=== PATIENT | female | born 1950 | race Caucasian/White ===

== ENCOUNTER 2016-09-06 18:35 | Inpatient (IN) | payer OTHER, MEDICARE ==
[~2016-09-06 18:35] MED LIST: ALLOPURINOL100 MG PO; COLACE100 MG PO; COQ-10100 MG PO; CRESTOR20 MG PO; GLUCOPHAGE1000 MG PO; LASIX40 MG PO; LOPRESSOR25 MG PO; LOPRESSOR50 MG PO; MAG-OXIDE 400M400 MG PO; MAXZIDE 75 MG-1 EACH PO; OXY-IR 5MG5 MG PO; PHENERGAN25 M1 PO; POTASSIUM CHLO10 MEQ PO; VITAMIN D-32000 UNI1 PO
[2016-09-06 18:59] LABS: BILIRUBIN NEGATIVE (NEGATIVE); BLOOD NEGATIVE Ery/uL (NEGATIVE); CLARITY CLEAR (CLEAR); COLOR YELLOW (YELLOW); GLUCOSE (U) NORMAL (NORMAL); KETONE (U) NEGATIVE (NEGATIVE); LEUKOCYTES 1+ Leu/uL (NEGATIVE); NITRITE NEGATIVE (NEGATIVE); PROTEIN NEGATIVE (NEGATIVE); SPECIFIC GRAVITY <=1.005 (1.001-1.030); UROBILINOGEN 0.2 mg/dL (0.2-1.0)
[2016-09-06 19:03] LABS: BACTERIA TRACE; SQUAMOUS EPITHELIAL CELLS RARE; URINARY RBC RARE
[2016-09-06 19:11] LABS: BASOPHIL 0.4 % (0-2); EOSINOPHIL 1.4 % (0-7); HCT 43.3 % (37.0-47.0); HGB 14.6 g/dl (12.5-16.0); LYMPHOCYTE 35.6 % (15-48); MCH 29.9 pg (25.0-31.0); MCHC 33.7 g/dL (32.0-36.0); MCV 88.7 fL (78.0-100.0); MONOCYTE 7.4 % (0-12); MPV 10.1 fL (6.0-9.5); NEUTROPHIL 55.2 % (41-80); PLT 268 K/uL (150-400); RBC 4.88 M/uL (4.20-5.40); RDW 14.1 % (11.5-14.0); WBC 10.9 K/uL (4.0-10.5)
[2016-09-06 19:28] LABS: ALBUMIN 5.2 g/dL (3.4-4.8); BILIRUBIN - TOTAL 0.8 mg/dL (0.1-1.0); CREATININE 0.8 mg/dL (0.5-1.0); GLOBULIN (CALCULATION) 2.4 g/dL (2.2-4.2); POTASSIUM 3.6 mmol/L (3.5-5.1); TOTAL PROTEIN 7.6 g/dL (6.4-8.3)
[2016-09-07 04:32] LABS: BASOPHIL 0.3 % (0-2); EOSINOPHIL 0.9 % (0-7); HCT 38.5 % (37.0-47.0); LYMPHOCYTE 31.6 % (15-48); MCH 29.7 pg (25.0-31.0); MCHC 33.8 g/dL (32.0-36.0); MCV 88.1 fL (78.0-100.0); MONOCYTE 6.5 % (0-12); MPV 10.3 fL (6.0-9.5); NEUTROPHIL 60.7 % (41-80); PLT 218 K/uL (150-400); RBC 4.37 M/uL (4.20-5.40); RDW 13.8 % (11.5-14.0); WBC 7.9 K/uL (4.0-10.5)
[2016-09-07 04:48] LABS: CREATININE 0.7 mg/dL (0.5-1.0); POTASSIUM 3.3 mmol/L (3.5-5.1)
[2016-09-08 04:53] LABS: HCT 45.2 % (37.0-47.0); HGB 15.6 g/dl (12.5-16.0); MCH 30.1 pg (25.0-31.0); MCHC 34.5 g/dL (32.0-36.0); MCV 87.3 fL (78.0-100.0); MPV 10.1 fL (6.0-9.5); RBC 5.18 M/uL (4.20-5.40); RDW 14.1 % (11.5-14.0); WBC 13.4 K/uL (4.0-10.5)
[2016-09-08 05:09] LABS: CREATININE 0.7 mg/dL (0.5-1.0); MAGNESIUM 1.91 mg/dL (1.40-2.10); PHOSPHORUS 3.6 mg/dL (2.7-4.5); POTASSIUM 3.6 mmol/L (3.5-5.1)
[2016-09-09 04:29] LABS: HCT 44.4 % (37.0-47.0); HGB 14.7 g/dl (12.5-16.0); MCH 29.5 pg (25.0-31.0); MCHC 33.1 g/dL (32.0-36.0); MPV 10.1 fL (6.0-9.5); RBC 4.99 M/uL (4.20-5.40); RDW 14.6 % (11.5-14.0); WBC 14.3 K/uL (4.0-10.5)
[2016-09-09 04:46] LABS: CREATININE 0.8 mg/dL (0.5-1.0); MAGNESIUM 2.03 mg/dL (1.40-2.10); POTASSIUM 3.3 mmol/L (3.5-5.1)
[2016-09-10 04:52] LABS: HCT 37.2 % (37.0-47.0); HGB 12.6 g/dl (12.5-16.0); MCH 30.1 pg (25.0-31.0); MCHC 33.9 g/dL (32.0-36.0); MCV 88.8 fL (78.0-100.0); MPV 10.7 fL (6.0-9.5); RBC 4.19 M/uL (4.20-5.40); RDW 14.4 % (11.5-14.0); WBC 14.4 K/uL (4.0-10.5)
[2016-09-10 05:06] LABS: CREATININE 0.6 mg/dL (0.5-1.0); MAGNESIUM 1.92 mg/dL (1.40-2.10); POTASSIUM 3.2 mmol/L (3.5-5.1)
[2016-09-11 07:46] LABS: HCT 37.6 % (37.0-47.0); HGB 12.6 g/dl (12.5-16.0); MCH 29.5 pg (25.0-31.0); MCHC 33.5 g/dL (32.0-36.0); MCV 88.1 fL (78.0-100.0); MPV 10.1 fL (6.0-9.5); RBC 4.27 M/uL (4.20-5.40); RDW 14.1 % (11.5-14.0); WBC 8.7 K/uL (4.0-10.5)
[2016-09-11 08:38] LABS: BILIRUBIN - TOTAL 0.4 mg/dL (0.1-1.0); CREATININE 0.6 mg/dL (0.5-1.0); GLOBULIN (CALCULATION) 2.3 g/dL (2.2-4.2); POTASSIUM 3.1 mmol/L (3.5-5.1); TOTAL PROTEIN 6.3 g/dL (6.4-8.3)
[2016-09-11 14:23] LABS: CREATININE 0.6 mg/dL (0.5-1.0); POTASSIUM 3.6 mmol/L (3.5-5.1)
[2017-02-09] MEDS ORDERED: NORCO 5-325 TA1 EACH PO (12:23)
[2017-02-09] MEDS ORDERED: ZOFRAN4 MG PO (12:24)
== END 2016-09-11 15:50 | disposition home or self-care (01) | DRG 389 ==
LOC: FER 18:35 → FMS 23:00
PROVIDERS: Emergency Medicine Emergency Medical Services; Internal Medicine; Nurse Practitioner Family; ADMIT Internal Medicine Nephrology
DX: K56.60 Unspecified intestinal obstruction (principal); N39.0 Urinary tract infection, site not specified; I42.9 Cardiomyopathy, unspecified; I10 Essential (primary) hypertension; E11.9 Type 2 diabetes mellitus without complications; B96.4 Proteus (mirabilis) (morganii) as the cause of diseases classified elsewhere; E78.5 Hyperlipidemia, unspecified; I44.7 Left bundle-branch block, unspecified; G47.30 Sleep apnea, unspecified; K21.9 Gastro-esophageal reflux disease without esophagitis; E86.0 Dehydration; E87.6 Hypokalemia; Z95.1 Presence of aortocoronary bypass graft; Z91.040 Latex allergy status; Z88.8 Allergy status to other drugs, medicaments and biological substances; Z91.041 Radiographic dye allergy status; Z83.3 Family history of diabetes mellitus; Z82.49 Family history of ischemic heart disease and other diseases of the circulatory system; Z85.43 Personal history of malignant neoplasm of ovary; Z90.710 Acquired absence of both cervix and uterus; Z90.79 Acquired absence of other genital organ(s); Z88.1 Allergy status to other antibiotic agents; Z88.5 Allergy status to narcotic agent
CPT/HCPCS: 36415; 74020; 74022; 80048; 80053; 81001; 82150; 82962; 83605; 83690; 83735; 84100; 84132; 85025; 87076; 87088; 87186; 93005; C9113; J0131; J1170; J1885; J1940; J2405

== ENCOUNTER 2021-07-29 21:05 | Emergency (ER) | payer OTHER ==
[~2021-07-29 21:05] MED LIST changes: +ASPIRIN EC81 M1 PO; +COZAAR25 MG PO; +GARLIC1 EAC1 PO; +NORCO 5-325 TA1 EACH PO; +ONDANSETRON ODT8 MG PO; +VITAMIN C PO; +ZINC30 M1 PO; +ZOFRAN4 MG PO
[2021-07-29 23:29] LABS: BASOPHIL 0.3 % (0-2); EOSINOPHIL 0.3 % (0-7); HCT 41.6 % (37.0-47.0); HGB 13.6 g/dl (12.5-16.0); LYMPHOCYTE 13.6 % (15-48); MCH 30.1 pg (25.0-31.0); MCHC 32.7 g/dL (32.0-36.0); MONOCYTE 5.2 % (0-12); MPV 9.7 fL (6.0-9.5); NEUTROPHIL 80.2 % (41-80); NRBC 0; PLT 194 K/uL (150-400); RBC 4.52 M/uL (4.20-5.40); RDW 13.9 % (11.5-14.0); WBC 11.7 K/uL (4.0-10.5)
[2021-07-29 23:51] LABS: ALBUMIN 4.2 g/dL (3.4-5.0); BILIRUBIN - TOTAL 0.9 mg/dL (0.2-1.0); BUN/CREAT RATIO (CALC) 26.6 RATIO; CREATININE 0.79 mg/dL (0.51-0.95); GLOBULIN (CALCULATION) 3.4 g/dL; POTASSIUM 3.7 mmol/L (3.5-5.1); TOTAL PROTEIN 7.6 g/dL (6.4-8.2)
[2021-07-30 00:01] LABS: LACTIC ACID 3.1 mmol/L (0.4-1.9)
[2021-07-30 01:39] LABS: BILIRUBIN NEGATIVE (NEGATIVE); BLOOD NEGATIVE Ery/uL (NEGATIVE); CLARITY CLEAR (CLEAR); COLOR YELLOW (YELLOW); GLUCOSE (U) NORMAL (NORMAL); LEUKOCYTES NEGATIVE Leu/uL (NEGATIVE); NITRITE NEGATIVE (NEGATIVE); PROTEIN TRACE (LOW) mg/dL (NEGATIVE); SPECIFIC GRAVITY 1.015 (1.001-1.030); UROBILINOGEN 0.2 mg/dL (0.2-1.0)
[2021-07-30] MEDS ORDERED: NORCO 5-325 TA1 EACH PO (07:38)
[2021-07-30] MEDS ORDERED: ONDANSETRON ODT4 MG SL (07:38)
[2021-07-30] MEDS ORDERED: PHENERGAN12.5 M1 PO (07:38)
== END 2021-07-30 08:26 | disposition home or self-care (01) ==
LOC: FER 21:05
PROVIDERS: Emergency Medicine Emergency Medical Services
DX: K56.600 Partial intestinal obstruction, unspecified as to cause (principal); E11.9 Type 2 diabetes mellitus without complications; Z20.822 Contact with and (suspected) exposure to COVID-19; Z88.1 Allergy status to other antibiotic agents; Z91.041 Radiographic dye allergy status; Z91.09 Other allergy status, other than to drugs and biological substances
CPT/HCPCS: 36415; 74018; 80053; 81003; 83605; 84145; 85025; J1170; J2405; J7030; U0002